=== PATIENT | male | born 1955 | race Caucasian/White ===

== ENCOUNTER → 2019-02-14 | Outpatient (CLI) | payer MEDICARE ==
[2019-02-14 14:38] VITALS: BP 140/92; PULSE 63; TEMP 97.9; BMI 38.9
--- NOTE | 2019-02-14 16:14 | FL ---
EXAMINATION TYPE: FL barium swallow DATE OF EXAM: 02/14/2019 LAP BANDING LIMITED ESOPHAGRAM: CLINICAL HISTORY: History of lap band placed 16 years ago with epigastric pain reflux-like symptoms for 4 months. TECHNIQUE: Limited esophagram is performed utilizing 2-3 oz of barium. A total of 42 seconds of fluo roscopic time was utilized during procedure. 51 spot images are saved for ordering surgeon. COMPARISON: None. FINDINGS: Pre-procedure clerk guide image shows lap band high in position with "O" sign and increased p hi angle. No prior study is available for comparison to assess change. The patient then drank oral co ntrast. There is satisfactory flow of contrast along the course of the esophagus. There is mild amelia y in flow of contrast along the course of the lap band, there is no evidence of contrast extravasatio n to suggest leak. There is small caliber channel. Majority of contrast remains about the lap band i nstead of passing to small caliber channel there is reflux into distal one half of esophagus. Patient remains asymptomatic during study. IMPRESSION: Suspect lap band slippage. Small caliber channel at LAD band despite empty fill causing m ild to borderline moderate obstruction.
--- NOTE | 2019-02-14 16:46 | P.HPBAR ---
Bariatric H&P - History & Physicial H&P Date: 02/14/19 History & Physicial: Visit/CC: lap band follow up Patient initial contact: Initial weight: 124.851 kg Initial weight in pounds: 275.25 Height: 5 ft 11 in Initial BMI: 38.4 Last weight: Current weight: 126.552 kg Current weight in pounds: 279.00 Current BMI: 38.9 [place] body weight (based on NIH guidelines): 78.018 kg Excess body weight loss: The patient is a 63 year-old M who presents for Bariatric Assessment. Patient has complaints of a night cough which is new. He denies any dysphagia or GERD. Past Medical History Past Medical History: Asthma, Hyperlipidemia, Hypertension Additional Past Medical History / Comment(s): , hx colon polyps, wound waist line History of Any Multi-Drug Resistant Organisms: None Reported Past Surgical History: Appendectomy, Bariatric Surgery, Joint Replacement Additional Past Surgical History / Comment(s): lt and rt shoulder replacement, lt knee replacement, skin reduction surgeries Past Anesthesia/Blood Transfusion Reactions: No Reported Reaction Past Psychological History: No Psychological Hx Reported Smoking Status: Never smoker Past Alcohol Use History: Occasional Past Drug Use History: None Reported - Past Family History Father Additional Family Medical History / Comment(s): experienced rectal bleeding and during a seizure episode Mother Family Medical History: No Reported History Surgical - Exam Vital Signs Temp Pulse BP 97.9 F 63 140/92 02/14/19 14:35 02/14/19 14:35 02/14/19 14:35 - General well developed, well nourished, no distress - Abdomen Abdomen: soft, non tender Bariatric Assessment & Plan Plan: Patient LAP-BAND was empty. 0.5 mL was removed from his band. He had an esophagram performed which showed some restriction across the band site is unclear if he has any definite movement of his LAP-BAND device suggestive of prolapse. Patient will follow-up in 2 weeks. He'll have a repeat esophagram performed at that time. Bariatric Checklist Checklist: Plan: Checklist: EGD: 1. Hiatal hernia: 2. H. Pylori: HgbA1c: Vitamin D: Smoking: Never smoker Primary care physician referral: Psychiatry clearance: Cardiology clearance: Sleep study: Diet journal: VTE risk score: VTE risk level: Rehab needs at discharge:
== END | disposition home or self-care (01) ==
LOC: BARWHC3 13:30
PROVIDERS: ATTEND Surgery
DX: Z46.51 Encounter for fitting and adjustment of gastric lap band (principal); J45.909 Unspecified asthma, uncomplicated; E78.5 Hyperlipidemia, unspecified; I10 Essential (primary) hypertension; Z98.84 Bariatric surgery status
CPT/HCPCS: 74220; G0463; 99212

== ENCOUNTER → 2019-02-28 | Outpatient (CLI) | payer MEDICARE ==
[2019-02-28 15:11] VITALS: BP 144/61; PULSE 66; TEMP 98.3; BMI 39.7
--- NOTE | 2019-02-28 15:28 | FL ---
EXAMINATION TYPE: FL barium swallow DATE OF EXAM: 02/28/2019 COMPARISON: 02/14/2019 HISTORY: Reflux TECHNIQUE: A single contrast esophagram is performed through the lap band with barium. FINDINGS: The takeoff of the full report appears superior. However, the lap band orientation appears normal on order tracer images. There appears to be narrowing through the lap band region. There is mild to moderate hesitancy of con trast passing through the lap band. No obstruction is evident. Tertiary contractions were evident. No prolapse of the stomach through the lap band is evident. There is some residual within the distal esophagus despite several swallowing attempts. The patient was placed horizontally on the table. Reflux was elicited during the examination to the l evel the clavicles. IMPRESSIONS: 1. Gastroesophageal reflux to the LAP-BAND was elicited to the level of clavicles. 2. Mild to moderate hesitancy passing antegrade through the lap band into the stomach
--- NOTE | 2019-03-14 14:24 | P.HPBAR ---
Bariatric H&P - History & Physicial H&P Date: 02/28/19 History & Physicial: Visit/CC: lap band followup Patient initial contact: Initial weight: 124.851 kg Initial weight in pounds: 275.25 Height: 5 ft 11 in Initial BMI: 38.4 Last weight: Current weight: 129.274 kg Current weight in pounds: 285.00 Current BMI: 39.7 [place] body weight (based on NIH guidelines): 78.018 kg Excess body weight loss: The patient is a 63 year-old M who presents for Bariatric Assessment. Patient presents today for lab band follow up. His band has been empty. He denies a significant dysphagia. Past Medical History Past Medical History: Asthma, Hyperlipidemia, Hypertension Additional Past Medical History / Comment(s): , hx colon polyps, wound waist line History of Any Multi-Drug Resistant Organisms: None Reported Past Surgical History: Appendectomy, Bariatric Surgery, Joint Replacement Additional Past Surgical History / Comment(s): lt and rt shoulder replacement, lt knee replacement, skin reduction surgeries Past Anesthesia/Blood Transfusion Reactions: No Reported Reaction Past Psychological History: No Psychological Hx Reported Smoking Status: Never smoker Past Alcohol Use History: Occasional Past Drug Use History: None Reported - Past Family History Father Additional Family Medical History / Comment(s): experienced rectal bleeding and during a seizure episode Mother Family Medical History: No Reported History Surgical - Exam Vital Signs Temp Pulse BP 98.3 F 66 144/61 02/28/19 15:07 02/28/19 15:07 02/28/19 15:07 - General well developed, well nourished - Abdomen Abdomen: soft, non tender Bariatric Assessment & Plan Plan: The patient is doing well. He denies any dysphagia. I discussed the patient that he may have a evidence of a small prolapse. This is difficult to tell on his x-ray. Since patient is asymptomatic he'll be observed. He'll follow-up in one month. Bariatric Checklist Checklist: Plan: Checklist: EGD: 1. Hiatal hernia: 2. H. Pylori: HgbA1c: Vitamin D: Smoking: Never smoker Primary care physician referral: Psychiatry clearance: Cardiology clearance: Sleep study: Diet journal: VTE risk score: VTE risk level: Rehab needs at discharge:
== END | disposition home or self-care (01) ==
LOC: BARWHC3 12:47
PROVIDERS: ATTEND Surgery
DX: Z09 Encounter for follow-up examination after completed treatment for conditions other than malignant neoplasm (principal); K21.9 Gastro-esophageal reflux disease without esophagitis; Z98.84 Bariatric surgery status; Z90.89 Acquired absence of other organs; Z98.890 Other specified postprocedural states
CPT/HCPCS: 74220; G0463; 99211

== ENCOUNTER → 2019-03-21 | Outpatient (CLI) | payer MEDICARE ==
[2019-03-21 13:42] VITALS: BP 142/84; PULSE 84; TEMP 98.2; BMI 40.3
--- NOTE | 2019-03-28 14:34 | P.HPBAR ---
Bariatric H&P - History & Physicial H&P Date: 03/21/19 History & Physicial: Visit/CC: lap band follow up Patient initial contact: Initial weight: 124.851 kg Initial weight in pounds: 275.25 Height: 5 ft 11 in Initial BMI: 38.4 Last weight: Current weight: 131.088 kg Current weight in pounds: 289.00 Current BMI: 40.3 [place] body weight (based on NIH guidelines): 78.018 kg Excess body weight loss: The patient is a 63 year-old M who presents for Bariatric Assessment. Patient presents for lap band follow up. He has had trouble with GERD and dysphagia. His LAP-BAND is empty. He is considering conversion to the sleeve gastrectomy. Past Medical History Past Medical History: Asthma, Hyperlipidemia, Hypertension Additional Past Medical History / Comment(s): , hx colon polyps, wound waist line History of Any Multi-Drug Resistant Organisms: None Reported Past Surgical History: Appendectomy, Bariatric Surgery, Joint Replacement Additional Past Surgical History / Comment(s): lt and rt shoulder replacement, lt knee replacement, skin reduction surgeries Past Anesthesia/Blood Transfusion Reactions: No Reported Reaction Past Psychological History: No Psychological Hx Reported Smoking Status: Never smoker Past Alcohol Use History: Occasional Past Drug Use History: None Reported - Past Family History Father Additional Family Medical History / Comment(s): experienced rectal bleeding and during a seizure episode Mother Family Medical History: No Reported History Surgical - Exam Vital Signs Temp Pulse BP 98.2 F 84 142/84 03/21/19 13:38 03/21/19 13:38 03/21/19 13:38 - General well developed, well nourished, no distress - Eyes PERRL - ENT normal pinna - Neck no masses - Respiratory normal expansion - Cardiovascular Rhythm: regular - Abdomen Abdomen: soft, non tender Bariatric Assessment & Plan Plan: GERD Dysphagia Patient LAP-BAND was emptied and he is still experiencing some mild GERD and dysphagia. The patient is considering conversion to sleeve gastrectomy. We will over the risks and benefits of procedure. He'll follow-up in one month. Bariatric Checklist Checklist: Plan: Checklist: EGD: 1. Hiatal hernia: 2. H. Pylori: HgbA1c: Vitamin D: Smoking: Never smoker Primary care physician referral: Psychiatry clearance: Cardiology clearance: Sleep study: Diet journal: VTE risk score: VTE risk level: Rehab needs at discharge:
== END | disposition home or self-care (01) ==
LOC: BARWHC3 13:05
PROVIDERS: ATTEND Surgery
DX: Z46.51 Encounter for fitting and adjustment of gastric lap band (principal); K21.9 Gastro-esophageal reflux disease without esophagitis; R13.10 Dysphagia, unspecified
CPT/HCPCS: 99211

== ENCOUNTER 2019-04-11 07:43 | Day surgery (SDC) | payer MEDICARE ==
[2019-04-06 15:38] VITALS: BMI 40.4
[~2019-04-11 07:43] MED LIST: LACTATED RINGERS 1,000 ML IV SCH; LIDOCAINE 1% 20 ML VIAL (10MG/ML) FOR IV START INTRADERMA PRN
[2019-04-11 08:09] VITALS: RESP 16; TEMP 97.1
[2019-04-11] MEDS ORDERED: PROPOFOL 10 MG/ML 20 ML VIAL IV ONE (08:30)
--- NOTE | 2019-04-11 08:37 | P.GSHP ---
History of Present Illness H&P Date: 04/11/19 Chief Complaint: GERD This is a 63-year-old male presents today for EGD. Patient's previous history of LAP-BAND procedure. He's had significant GERD. Past Medical History Past Medical History: Asthma, GERD/Reflux, Hyperlipidemia, Hypertension, Osteoarthritis (OA) Additional Past Medical History / Comment(s): Hx colon polyps, hx. of wound waist line, R sciatic pain @ times. History of Any Multi-Drug Resistant Organisms: None Reported Past Surgical History: Appendectomy, Bariatric Surgery, Joint Replacement, Tonsillectomy Additional Past Surgical History / Comment(s): lt and rt shoulder replacement, lt knee replacement, skin reduction surgeries, lap band surgery. Past Anesthesia/Blood Transfusion Reactions: No Reported Reaction Additional Past Anesthesia/Blood Transfusion Reaction / Comment(s): Throat closed up after one of his surgeries. Does not have any problems since he has lost weight. Smoking Status: Never smoker - Past Family History Father Additional Family Medical History / Comment(s): experienced rectal bleeding and during a seizure episode Mother Family Medical History: No Reported History Medications and Allergies Home Medications Medication Instructions Recorded Confirmed Type Aspirin [Adult Low Dose Aspirin EC] 81 mg PO DAILY 06/26/16 04/11/19 History Lisinopril [Prinivil] 10 mg PO HS 06/26/16 04/11/19 History Simvastatin [Zocor] 20 mg PO HS 06/26/16 04/11/19 History Latanoprost/Pf [Latanoprost 0.005% 1 drop BOTH EYES HS 04/06/19 04/11/19 History Eye Drop] Allergies Allergy/AdvReac Type Severity Reaction Status Date / Time meperidine HCl [From Demerol] Allergy Rash/Hives Verified 04/11/19 08:05 adhesive tape AdvReac Rash/Hives Verified 04/11/19 08:05 Surgical - Exam Vital Signs Temp Pulse Resp BP Pulse Ox 97.1 F L 62 16 152/77 97 04/11/19 08:06 04/11/19 08:06 04/11/19 08:06 04/11/19 08:06 04/11/19 08:06 - General well developed, well nourished, no distress - Eyes PERRL - ENT normal pinna - Neck no masses - Respiratory normal expansion - Cardiovascular Rhythm: regular - Abdomen Abdomen: soft, non tender Assessment and Plan Assessment: GERD. We'll perform EGD.
--- NOTE | 2019-04-11 08:49 | P.OP ---
Date of Procedure: 04/11/19 Preoperative Diagnosis: GERD Postoperative Diagnosis: Peptic ulcer disease with antral ulceration Procedure(s) Performed: EGD Anesthesia: MAC Surgeon: Flavio Collier Pathology: other (Antral ulcer) Condition: stable Disposition: PACU Description of Procedure: The patient's placed on the endoscopy table in the lateral position. He received IV sedation. The gastroscope placed oropharynx. The scope was placed in the esophagus and into the stomach. Scope was then placed through the pylorus. The first and second portion of the duodenum appeared normal. Scope was then brought back the antrum and there were 2 ulcers seen in the antrum. There is known to any active bleeding. The antral ulcer was biopsied. The remainder the stomach appeared normal. The scope was unretroflexed patient appears placed LAP-BAND device this was without evidence of inflammation or erosion. The proximal gastric stomach appeared slightly dilated. The GE junction was at 47 is. The distal esophagus normal. The proximal esophagus was normal. Scope was withdrawn for patient.
[2019-04-11] MEDS ORDERED: IV FLUID CONTINUATION 650 ML IV ONE (08:56)
[2019-04-11 09:12] VITALS: BP 128/85; PULSE 56
== END 2019-04-11 09:39 | disposition home or self-care (01) ==
LOC: ORWHC2ENDO 07:43
PROVIDERS: ATTEND Surgery
DX: K25.9 Gastric ulcer, unspecified as acute or chronic, without hemorrhage or perforation (principal); K29.50 Unspecified chronic gastritis without bleeding; K21.9 Gastro-esophageal reflux disease without esophagitis; J45.909 Unspecified asthma, uncomplicated; E78.5 Hyperlipidemia, unspecified; I10 Essential (primary) hypertension; M19.90 Unspecified osteoarthritis, unspecified site; Z86.010 Personal history of colon polyps; Z98.84 Bariatric surgery status; Z96.611 Presence of right artificial shoulder joint; Z96.652 Presence of left artificial knee joint; Z79.82 Long term (current) use of aspirin; Z79.899 Other long term (current) drug therapy; Z88.5 Allergy status to narcotic agent; Z91.09 Other allergy status, other than to drugs and biological substances
CPT/HCPCS: 88305; 43239; J2704

== ENCOUNTER → 2019-05-02 | Outpatient (CLI) | payer MEDICARE ==
--- NOTE | 2019-06-06 14:34 | P.HPBAR ---
Bariatric H&P - History & Physicial H&P Date: 05/02/19 History & Physicial: Visit/CC: Patient initial contact: Initial weight: 124.851 kg Initial weight in pounds: Height: Initial BMI: Last weight: Current weight: Current weight in pounds: Current BMI: [place] body weight (based on NIH guidelines): Excess body weight loss: The patient is a 63 year-old M who presents for Bariatric Assessment. Patient presents today he has had issues with peptic ulcer disease. Patient will be covering to sleeve gastrectomy. He is a chronic dysphagia with his LAP-BAND. Past Medical History Past Medical History: Asthma, CVA/TIA, GERD/Reflux, Hyperlipidemia, Hypertension, Osteoarthritis (OA) Additional Past Medical History / Comment(s): Hx colon polyps, hx. of wound waist line, R sciatic pain @ times. History of Any Multi-Drug Resistant Organisms: None Reported Past Surgical History: Appendectomy, Bariatric Surgery, Joint Replacement, Tonsillectomy Additional Past Surgical History / Comment(s): lt and rt shoulder replacement, lt knee replacement, skin reduction surgeries, lap band surgery. Past Anesthesia/Blood Transfusion Reactions: No Reported Reaction Additional Past Anesthesia/Blood Transfusion Reaction / Comm: Throat closed up after one of his surgeries. Does not have any problems since he has lost weight. Past Psychological History: No Psychological Hx Reported Smoking Status: Never smoker Past Alcohol Use History: Occasional Past Drug Use History: None Reported - Past Family History Father Additional Family Medical History / Comment(s): experienced rectal bleeding and during a seizure episode Mother Family Medical History: No Reported History Surgical - Exam - General well developed, well nourished, no distress - Eyes PERRL - ENT normal pinna - Abdomen Abdomen: soft, non tender Bariatric Assessment & Plan Plan: Chronic dysphagia related to LAP-BAND. Patient will undergo conversion to sl eeve gastrectomy with removal of LAP-BAND. Patient is well aware the risks of surgery including conversion to the open procedure and injury to the stomach liver spleen. Bariatric Checklist Checklist: Plan: Checklist: EGD: 1. Hiatal hernia: 2. H. Pylori: HgbA1c: Vitamin D: Smoking: Never smoker Primary care physician referral: Dr. J Luis Cunningham ([place]) Psychiatry clearance: Cardiology clearance: Sleep study: Diet journal: VTE risk score: VTE risk level: Rehab needs at discharge:
== END | disposition home or self-care (01) ==
DX: Z53.9 Procedure and treatment not carried out, unspecified reason (principal)

== ENCOUNTER → 2019-05-02 | Outpatient (CLI) | payer MEDICARE ==
[2019-05-02 09:44] VITALS: BMI 40.5
[2019-05-02 13:16] VITALS: BP 142/80; PULSE 60; TEMP 98.3
[2019-05-02 14:01] LABS: Basophils # (A) 0.1 k/uL (0-0.2); Basophils % (A) 1 %; Eosinophils # (A) 0.6 k/uL (0-0.7); Eosinophils % (A) 8 %; HCT 44.7 % (39.0-53.0); HGB 13.8 gm/dL (13.0-17.5); Lymphocytes # (A) 2.4 k/uL (1.0-4.8); Lymphocytes % (A) 29 %; MCH 25.7 pg (25.0-35.0); MCV 83.1 fL (80.0-100.0); Mean Platelet Volume 7.1; Monocytes # (A) 0.4 k/uL (0-1.0); Monocytes % (A) 5 %; Neutrophils # (A) 4.6 k/uL (1.3-7.7); Neutrophils % (A) 56 %; Platelet Count 279 k/uL (150-450); RBC 5.38 m/uL (4.30-5.90); RDW 14.6 % (11.5-15.5); WBC 8.2 k/uL (3.8-10.6)
[2019-05-02 19:28] LABS: African American GFR (CKD) 74.1 (60.0-200.0); Albumin 4.6 g/dL (3.80-4.90); Anion Gap 11.2 mmol/L (4.00-12.00); Calcium 9.5 mg/dL (8.7-10.3); Carbon Dioxide 21.8 mmol/L (21.6-31.8); Globulin 2.3 g/dL (1.6-3.3); Potassium 4.3 mmol/L (3.5-5.5); Total Bilirubin 0.3 mg/dL (0.3-1.2); Total Protein 6.9 g/dL (6.2-8.2)
== END | disposition home or self-care (01) ==
LOC: BARWHC3 08:45
PROVIDERS: ATTEND Surgery
DX: E66.01 Morbid (severe) obesity due to excess calories (principal); Z68.41 Body mass index [BMI] 40.0-44.9, adult
CPT/HCPCS: 80053; 85025; 97804; G0463; 99211

== ENCOUNTER 2019-05-04 07:54 | Day surgery (SDC) | payer MEDICARE ==
[2019-05-03 08:12] VITALS: BMI 40.4
[2019-05-04 08:15] VITALS: TEMP 97.3
[2019-05-04] MEDS ORDERED: LIDOCAINE 1% INJ 10MG/ML (20 ML MDV) ONE (09:26)
[2019-05-04] MEDS ORDERED: PROPOFOL 10 MG/ML 20 ML VIAL IV ONE (09:26)
--- NOTE | 2019-05-04 09:39 | P.GSHP ---
History of Present Illness H&P Date: 05/04/19 Chief Complaint: History of gastric ulcer This is a 63-year-old male who's had a previous gastric ulcer. Patient presents today for EGD. Past Medical History Past Medical History: Asthma, CVA/TIA, GERD/Reflux, Hyperlipidemia, Hyperten gera, Osteoarthritis (OA) Additional Past Medical History / Comment(s): Hx colon polyps, hx. of wound waist line, R sciatic pain @ times. small ulcer History of Any Multi-Drug Resistant Organisms: None Reported Past Surgical History: Appendectomy, Bariatric Surgery, Joint Replacement, Tonsillectomy Additional Past Surgical History / Comment(s): lt and rt shoulder replacement, lt knee replacement, skin reduction surgeries, lap band surgery. EGD 04/11/19 Past Anesthesia/Blood Transfusion Reactions: No Reported Reaction Additional Past Anesthesia/Blood Transfusion Reaction / Comment(s): Throat closed up after one of his surgeries many years ago. has had 8 surgeries since with no problems. Smoking Status: Never smoker - Past Family History Father Additional Family Medical History / Comment(s): experienced rectal bleeding and during a seizure episode Mother Family Medical History: No Reported History Medications and Allergies Home Medications Medication Instructions Recorded Confirmed Type Lisinopril [Prinivil] 10 mg PO HS 06/26/16 05/04/19 History Simvastatin [Zocor] 20 mg PO HS 06/26/16 05/04/19 History Latanoprost/Pf [Latanoprost 0.005% 1 drop BOTH EYES HS 04/06/19 05/04/19 History Eye Drop] C,E,Zinc,Copper 11/Bzwjb3y/Lut 1 each PO QAM 05/02/19 05/04/19 History [Ocuvite Adult 50 Plus Softgel] Omeprazole 40 mg PO QAM 05/02/19 05/04/19 History Allergies Allergy/AdvReac Type Severity Reaction Status Date / Time meperidine HCl [From Demerol] Allergy Rash/Hives Verified 05/04/19 08:07 adhesive tape AdvReac Rash/Hives Verified 05/04/19 08:07 Surgical - Exam Vital Signs Temp Pulse Resp BP Pulse Ox 97.3 F L 58 L 18 144/84 96 05/04/19 08:05 05/04/19 08:05 05/04/19 08:05 05/04/19 08:05 05/04/19 08:05 - General well developed, well nourished, no distress - Eyes PERRL - ENT normal pinna - Neck no masses - Respiratory normal expansion - Cardiovascular Rhythm: regular - Abdomen Abdomen: soft, non tender Assessment and Plan Assessment: History of gastric ulcer. We'll perform EGD.
--- NOTE | 2019-05-04 09:47 | P.OP ---
Date of Procedure: 05/04/19 Preoperative Diagnosis: Peptic ulcer disease Postoperative Diagnosis: Antral gastritis Procedure(s) Performed: EGD Anesthesia: MAC Surgeon: Flavio Collier Pathology: other (antrum) Description of Procedure: The patient's placed on the endoscopy table in the lateral position. He received IV sedation. The gastroscope placed oropharynx passed in the esop hagus. Scope was placed and stomach. Scope was placed through the pylorus. The first and second portion of the duodenum appeared normal. Scope was brought back the antrum and there is some minimal antral gastritis. The previous seen peptic ulcer had healed. The antrum was biopsied. The scope was unretroflexed and remainder the stomach appeared normal. The patient had a LAP-BAND device without evidence of insufflation erosion. The scope was then brought back the GE junction was at 40 cm. The distal esophagus appeared normal. The proximal esophagus appeared normal. Scope was brought patient.
[2019-05-04 10:09] VITALS: BP 130/87; PULSE 63; RESP 17
== END 2019-05-04 10:35 | disposition home or self-care (01) ==
LOC: ORWHC2ENDO 07:54
PROVIDERS: ATTEND Surgery
DX: K29.50 Unspecified chronic gastritis without bleeding (principal); K31.9 Disease of stomach and duodenum, unspecified; Z87.11 Personal history of peptic ulcer disease; Z98.84 Bariatric surgery status; J45.909 Unspecified asthma, uncomplicated; K21.9 Gastro-esophageal reflux disease without esophagitis; E78.5 Hyperlipidemia, unspecified; I10 Essential (primary) hypertension; M19.90 Unspecified osteoarthritis, unspecified site; Z79.899 Other long term (current) drug therapy; Z79.82 Long term (current) use of aspirin; Z88.5 Allergy status to narcotic agent; Z91.048 Other nonmedicinal substance allergy status; Z86.73 Personal history of transient ischemic attack (TIA), and cerebral infarction without residual deficits; Z86.010 Personal history of colon polyps; Z96.612 Presence of left artificial shoulder joint; Z96.611 Presence of right artificial shoulder joint; Z96.652 Presence of left artificial knee joint; Z98.890 Other specified postprocedural states; Z90.89 Acquired absence of other organs; Z90.49 Acquired absence of other specified parts of digestive tract; Z82.0 Family history of epilepsy and other diseases of the nervous system
CPT/HCPCS: 88305; 43239; J2001; J2704

== ENCOUNTER 2019-05-19 07:30 | Observation (INO) | payer MEDICARE ==
[2019-05-12 08:21] VITALS: BMI 40.4
[~2019-05-19 07:30] MED LIST changes: +DEXAMETHASONE SOD PHOSPHATE 10 MG/ML 1 ML VIAL IV ONE; +ENOXAPARIN 40 MG/0.4 ML SYRINGE SQ ONE; +HYDROmorphone 0.5 MG/0.5 ML SYRINGE IVP PRN; +MIDAZOLAM 2 MG/2 ML VIAL IV PRN; +ONDANSETRON 4 MG/2 ML VIAL IVP ONE; +SCOPOLAMINE 1.5MG/72HR PATCH TRANSDERM ONE; +ceFAZolin 3 GM in SODIUM CHLORIDE 0.9% 100 ML IVPB ONE
--- NOTE | 2019-05-19 09:24 | P.GSHP ---
History of Present Illness H&P Date: 05/19/19 Chief Complaint: Dysphagia This is a 63-year-old male who presents today for removal of LAP-BAND and conversion sleeve gastrectomy. Patient's had issues with chronic dysphagia related to his LAP-BAND. Patient presents today for removal LAP-BAND. He is also a risk of surgery including conversion to the open procedure and injury to the stomach liver spleen he is also aware the risk of gastric staple line disruption bleeding scarring. Past Medical History Past Medical History: Asthma, GERD/Reflux, Hyperlipidemia, Hypertension, Osteoarthritis (OA) Additional Past Medical History / Comment(s): Hx colon polyps, hx. of wound waist line, R sciatic pain @ times. hx stomach ulcers History of Any Multi-Drug Resistant Organisms: None Reported Past Surgical History: Appendectomy, Bariatric Surgery, Joint Replacement, Tonsillectomy Additional Past Surgical History / Comment(s): lt and rt shoulder replacement, lt knee replacement, skin reduction surgeries, lap band surgery. rk surgery eyes Past Anesthesia/Blood Transfusion Reactions: No Reported Reaction Additional Past Anesthesia/Blood Transfusion Reaction / Comment(s): Throat closed up after one of his surgeries. Does not have any problems since he has lost weight. Smoking Status: Never smoker - Past Family History Father Family Medical History: Seizure Disorder Additional Family Medical History / Comment(s): experienced rectal bleeding and during a seizure episode Mother Family Medical History: No Reported History Medications and Allergies Home Medications Medication Instructions Recorded Confirmed Type Lisinopril [Prinivil] 10 mg PO HS 06/26/16 05/12/19 History Simvastatin [Zocor] 20 mg PO HS 06/26/16 05/12/19 History Latanoprost/Pf [Latanoprost 0.005% 1 drop BOTH EYES HS 04/06/19 05/12/19 History Eye Drop] C,E,Zinc,Copper 11/Tzftb2o/Lut 1 each PO QAM 05/02/19 05/12/19 History [Ocuvite Adult 50 Plus Softgel] Omeprazole 40 mg PO QAM 05/02/19 05/12/19 History Allergies Allergy/AdvReac Type Severity Reaction Status Date / Time meperidine HCl [From Demerol] Allergy Rash/Hives Verified 05/12/19 08:11 adhesive tape AdvReac Rash/Hives Verified 08/01/19 08:11 Surgical - Exam Vital Signs Temp Pulse Resp BP Pulse Ox 97.7 F 64 16 140/83 94 L 05/19/19 09:21 05/19/19 09:21 05/19/19 09:21 05/19/19 09:21 05/19/19 09:21 BMI 40 - General well developed - Eyes PERRL - ENT normal pinna - Neck no masses - Respiratory normal expansion - Cardiovascular Rhythm: regular - Abdomen Abdomen: soft, non tender - Rectum Rectum: normal sphincter tone Assessment and Plan Assessment: Morbid obesity Dysphagia We'll perform removal of LAP-BAND Sleeve gastrectomy
[2019-05-19] MEDS ORDERED: ePHEDrine SULFATE/0.9% NACL/PF 50 MG/5 ML SYRINGE IV ONE (10:01)
[2019-05-19] MEDS ORDERED: NEOSTIGMINE 1 MG/ML 10 ML VIAL ONE (10:01)
[2019-05-19] MEDS ORDERED: GLYCOPYRROLATE 0.2 MG/ML 2 ML VIAL ONE (10:01)
[2019-05-19] MEDS ORDERED: PROPOFOL 10 MG/ML 20 ML VIAL IV ONE (10:01)
[2019-05-19] MEDS ORDERED: fentaNYL (PF) 50 MCG/ML 2 ML AMP ONE (10:01)
[2019-05-19] MEDS ORDERED: PHENYLEPHRINE-0.9% NACL SYG 1 MG/10 ML SYRINGE ONE (10:01)
[2019-05-19] MEDS ORDERED: LIDOCAINE 1% INJ 10MG/ML (20 ML MDV) ONE (10:01)
[2019-05-19] MEDS ORDERED: MIDAZOLAM 2 MG/2 ML VIAL ONE (10:01)
[2019-05-19] MEDS ORDERED: ROCURONIUM BROMIDE 10 MG/ML 10 ML VIAL IV ONE (10:01)
[2019-05-19] MEDS ORDERED: BUPIVACAIN-EPI 0.25%-1:200,000 30 ML VIAL SQ ONE (10:46)
[2019-05-19] MEDS ORDERED: LACTATED RINGERS 1,000 ML IV ONE ×2 (10:54→11:47)
[2019-05-19] MEDS ORDERED: HYDROmorphone 0.5 MG/0.5 ML SYRINGE IVP PRN (10:54)
[2019-05-19] MEDS ORDERED: ONDANSETRON 4 MG/2 ML VIAL IVP PRN (10:54)
[2019-05-19] MEDS ORDERED: HYDROcodone/APAP 5-325MG 1 EACH TAB PO PRN (10:54)
[2019-05-19] MEDS ORDERED: NALOXONE 0.4 MG/ML 1 ML VIAL IV PRN (10:54)
--- NOTE | 2019-05-19 10:54 | P.OP ---
Date of Procedure: 05/19/19 Preoperative Diagnosis: Dysphagia Morbid obesity Postoperative Diagnosis: Dysphagia Morbid obesity Hypotension Procedure(s) Performed: Diagnostic laparoscopy Anesthesia: SHANNAN Surgeon: Flavio Collier Estimated Blood Loss (ml): 3 Pathology: none sent Condition: stable Description of Procedure: Patient's placed on the operative table in the supine position. He received general anesthesia. His abdomen was prepped and draped usual fashion. A skin incision was made in the left upper quadrant and then using the 5 mm optical trocar under direct visualization the perineal cavity was entered. The abdomen was insufflated. Next a 15 mm trochars placed at the suprapubic umbilical position and under direct visualization. And then another skin incision was made at the port site. The laparoscope placed back the pleural cavity and the LAP-BAND device was visualized. At this point the patient had hypotension his abdomen was desufflated. He was managed medically by anesthesia. His blood pressure does not improve. Patient sustained blood pressures in the 60s systolic range. At this point the case was terminated there is known to any bleeding. Patient had trochars removed. The skin was closed interrupted 3-0 Monocryl suture. Dermabond was applied. He was sent to recovery room for cardiology consultation.
[2019-05-19 12:55] LABS: Cholesterol 160 mg/dL (<200); HDL Cholesterol 38 mg/dL (40-60); LDL Cholesterol,Calculated 100 mg/dL (0-99); Triglycerides 112 mg/dL (<150)
--- NOTE | 2019-05-19 19:08 | P.CRDCN ---
History of Present Illness History of present illness: This is Dr. Denise dictating a consult on this patient The patient was interviewed and examined by me IMPRESSION / ASSESSMENT: Episode of persistent hypotension during anesthesia during surgery for removal of the lap band and conversion sleeve gastrectomy. Surgery was prematurely aborted I saw the patient he was completely asymptomatic Past history of mild hypertension, on low-dose lisinopril 10 mg by mouth daily History of episodes of low blood pressure on this drug Dyslipidemia History of bariatric surgery in the past PLAN: Hold lisinopril today Restart lisinopril 5 mg by mouth daily If he is stable he may go home tomorrow after ambulating in the hallways and ensuring that his blood pressure is normal Follow-up with his primary care physician Home blood pressure monitoring 2-D echo and Doppler study HPI Patient developed persistent hypotension during removal of the lap band. The surgery was not completed, prematurely terminated it when I saw the patient he was completely asymptomatic. He denied any chest discomfort dizziness lightheadedness blood pressure was normal heart rates are normal he looks comfortable no respiratory distress No recent history of orthopnea PND shortness of breath with exertion chest discomfort dizziness lightheadedness ROS: No fever chills or rigors, no cough, phlegm or expectoration, no nausea, vomiting or diarrhea, no hematuria, dysuria, no musculoskeletal complaints, no strokes or seizures, no skin lesions. EXAMINATION: Blood pressure 126/57 mmHg pulse rate in the 60s afebrile 98.7F Breath sounds are clear no rhonchi no crackles Heart sounds S1-S2 normal no murmurs or gallops no rub Breath sounds are clear no rhonchi no crackles Abdomen soft Extremities are warm no edema REVIEW OF LABS, ECG & MEDICAL DATA Never smoker History of bariatric surgery in the past Hypertension and asthma LDL 100 HDL 38 also level XIV triglycerides 112 Troponin normal Twelve-lead ECG shows sinus rhythm normal ST segments normal cardiac intervals Past Medical History Past Medical History: Asthma, GERD/Reflux, Hyperlipidemia, Hypertension, Osteoarthritis (OA) Additional Past Medical History / Comment(s): Hx colon polyps, hx. of wound waist line, R sciatic pain @ times. hx stomach ulcers History of Any Multi-Drug Resistant Organisms: None Reported Past Surgical History: Appendectomy, Bariatric Surgery, Joint Replacement, Tonsillectomy Additional Past Surgical History / Comment(s): lt and rt shoulder replacement, lt knee replacement, skin reduction surgeries, lap band surgery. rk surgery eyes Past Anesthesia/Blood Transfusion Reactions: No Reported Reaction Additional Past Anesthesia/Blood Transfusion Reaction / Comment(s): Throat closed up after one of his surgeries. Does not have any problems since he has lost weight. Smoking Status: Never smoker - Past Family History Father Family Medical History: Seizure Disorder Additional Family Medical History / Comment(s): experienced rectal bleeding and during a seizure episode Mother Family Medical History: No Reported History Medications and Allergies Home Medications Medication Instructions Recorded Confirmed Type Lisinopril [Prinivil] 10 mg PO HS 06/26/16 05/19/19 History Simvastatin [Zocor] 20 mg PO HS 06/26/16 05/19/19 History Latanoprost/Pf [Latanoprost 0.005% 1 drop BOTH EYES HS 04/06/19 05/19/19 History Eye Drop] C,E,Zinc,Copper 11/Nukmw9z/Lut 1 cap PO QA 05/02/19 05/19/19 History [Ocuvite Adult 50 Plus Softgel] Omeprazole 40 mg PO QAM 05/02/19 05/19/19 History Allergies Allergy/AdvReac Type Severity Reaction Status Date / Time adhesive tape Allergy Rash/Hives Verified 05/19/19 13:57 meperidine HCl [From Demerol] Allergy Rash/Hives Verified 05/19/19 13:57 Physical Exam Vitals: Vital Signs Temp Pulse Resp BP BP Pulse Ox 05/19/19 15:52 65 17 99/59 93 L 05/19/19 13:47 98.7 F 78 17 102/57 94 L 05/19/19 12:43 66 16 126/57 97 05/19/19 12:13 85 16 123/56 96 05/19/19 12:00 81 16 124/63 97 05/19/19 11:42 70 18 120/62 95 05/19/19 11:38 72 16 117/59 96 05/19/19 11:30 72 16 124/65 95 05/19/19 11:24 79 16 116/63 96 05/19/19 11:16 80 16 120/62 94 L 05/19/19 10:58 96.8 F L 82 16 109/59 94 L 05/19/19 09:21 97.7 F 64 16 140/83 94 L Intake and Output 05/19/19 05/19/19 05/19/19 06:59 14:59 22:59 Intake Total 1425 360 Output Total 2 Balance 1423 360 Intake: IV 1300 Intake, IV Titration 125 Amount Lactated Ringers 1,000 ml 125 @ 125 mls/hr IV .Q8H ONE Rx#:[id number] Oral 360 Output: Estimated Blood Loss 2 Results Cardiac Enzymes 05/19/19 Range/Units 12:25 Troponin I <0.012 (0.000-0.034) ng/mL Lipids 05/19/19 Range/Units 12:25 Triglycerides 112 (<150) mg/dL Cholesterol 160 (<200) mg/dL HDL Cholesterol 38 L (40-60) mg/dL Current Medications Generic Name Dose Route Start Last Admin Trade Name Freq PRN Reason Stop Dose Admin Hydrocodone Bitart/Acetaminophen 2 each 05/19/19 10:54 [place] 5-325 PO Q6HR PRN Moderate to Severe Pain Enoxaparin Sodium 40 mg 05/20/19 09:00 Lovenox SQ DAILY VANI Hydromorphone HCl 0.5 mg 05/19/19 05:51 Dilaudid IVP 05/20/19 05:52 Q5M PRN Pain Control Hydromorphone HCl 0.5 mg 05/19/19 10:54 Dilaudid IVP Q3HR PRN Moderate to Severe Pain Latanoprost 1 drops 05/19/19 21:00 Xalatan 0.005% BOTH EYES HS VANI Lidocaine HCl 0.1 ml 05/19/19 05:51 05/19/19 09:47 .Xylocaine 1% Inj (10mg/Ml) For Iv Start INTRADERMA 0.1 ml PER PROTOCOL PRN Administration IV Start Midazolam HCl 2 mg 05/19/19 05:51 Versed IV 05/20/19 05:52 ONCE PRN Anxiety Naloxone HCl 0.2 mg 05/19/19 10:54 Narcan IV Q2M PRN Opioid Reversal Ondansetron HCl 4 mg 05/19/19 10:54 Zofran IVP Q8HR PRN Nausea And Vomiting Pantoprazole Sodium 40 mg 05/20/19 07:30 Protonix PO AC-BRKFST VANI Intake and Output 05/19/19 05/19/19 05/19/19 06:59 14:59 22:59 Intake Total 1425 360 Output Total 2 Balance 1423 360 Intake: IV 1300 Intake, IV Titration 125 Amount Lactated Ringers 1,000 ml 125 @ 125 mls/hr IV .Q8H ONE Rx#:[id number] Oral 360 Output: Estimated Blood Loss 2
[2019-05-19] MEDS ORDERED: LATANOPROST 0.005% OPHTH DROPS 2.5 ML BTL BOTH EYES SCH (21:00)
--- NOTE | 2019-05-19 23:03 | CONS ---
CONSULTATION REASON FOR CONSULTATION: Advice regarding hypertension and other medical issues requested by Dr. Collier. HISTORY OF PRESENT ILLNESS: This 63-year-old gentleman with a past medical history of multiple medical problems including asthma, GERD, hypertension, hyperlipidemia, DJD, bariatric surgery being followed by Dr. Wakefield in the outpatient was admitted for a gastric sleeve surgery after anesthesia and after making the abdominal punctures, prior to laparoscopy, the patient went into hypotension. The blood pressure was in the 60s systolic range and the procedure was interrupted and the patient admitted for further evaluation and treatment. EKG showed non-progression R-wave. Initial troponins negative. Cardiology evaluation in progress at this time. The patient also seen by Cardiology previously, the patient's own web assistant. There is no history of fever, rigors or chills. No history of headache, loss of consciousness, seizures at this time. PAST MEDICAL HISTORY: History of asthma, GERD, hypertension, history of DJD, history of bariatric surgery and appendectomy. MEDICATIONS: Prior to admission include home medications are: 1. Zocor 20 mg q.h.s. 2. Omeprazole 40 mg q.a.m. 3. Prinivil 10 mg q.h.s. 4. Latanoprost 1 drop both eyes q.h.s. 5. Ocuvite 1 capsule q.a.m. ALLERGIES: ADHESIVE TAPES AND DEMEROL. FAMILY HISTORY: History of seizure disorder. SOCIAL HISTORY: No history of smoking. Occasional alcohol intake. REVIEW OF SYSTEMS: ENT diminished vision. Diminished hearing. CARDIOVASCULAR: As mentioned earlier. RESPIRATORY: As mentioned earlier. GI as mentioned earlier. no dysuria. NERVOUS SYSTEM: No numbness or weakness. ALLERGY/IMMUNOLOGY: No asthma or hayfever. MUSCULOSKELETAL: As mentioned earlier. HEMATOLOGY/ONCOLOGY: No history of anemia. ENDOCRINE: No history of diabetes or hypothyroidism. CONSTITUTIONAL: As mentioned earlier. Dermatology: Negative. Rheumatology: Negative. Psychiatry: As mentioned earlier. PHYSICAL EXAMINATION: The patient is alert and oriented times three. Pulse 65, blood pressure 99/59, respiration 17, temperature 98.7, pulse ox 93% on room air. HEENT: Conjunctivae normal. Oral mucosa moist. NECK is no jugular venous distention. No carotid bruit. No lymph node enlargement. CARDIOVASCULAR: S1, S2 muffled. RESPIRATIONS: Breath sounds diminished in the bases. A few scattered rhonchi. No crackles. ABDOMEN: Soft. Some mild distention. Status post abdominal puncture for the surgery tender. Bowel sounds present. LEGS no edema. No swelling. NERVOUS SYSTEM: Higher functions as mentioned earlier. Moves all 4 limbs. No focal motor or sensory deficits. Lymphatics: No lymph nodes palpable in the neck, axillae or groin. SKIN: No ulcer, rash or bleeding. JOINTS: No active deforming arthropathy. LABS: AST is 38, LDL is 100. ASSESSMENT: 1. Perioperative hypotension for evaluation. 2. Morbid obesity, dysphagia for sleeve gastrectomy. 3. History of asthma. 4. Gastroesophageal reflux disease. 5. Hypertension. 6. Hyperlipidemia. 7. History of degenerative joint disease. 8. History of colonic polyps. 9. History of bariatric surgery. 10.FULL CODE. RECOMMENDATIONS AND DISCUSSION: In this 63-year-old gentleman who presented with multiple medical issues, at this time, I recommend to continue current medications, management and symptomatic treatment. I recommend baseline labs. Otherwise, I would also recommend EKG and 2D echo. Cardiology consultation. Set of troponins. We will follow the patient closely and further recommendations to follow. A copy of dictation being forwarded to Dr. Wakefield who is the primary physician. MMODL / IJN: [id number] /
[2019-05-20 06:58] LABS: Basophils % (A) 0 %; Eosinophils # (A) 0.1 k/uL (0-0.7); Eosinophils % (A) 1 %; HGB 13.1 gm/dL (13.0-17.5); Lymphocytes # (A) 1.5 k/uL (1.0-4.8); Lymphocytes % (A) 14 %; MCHC 32.7 g/dL (31.0-37.0); MCV 82.6 fL (80.0-100.0); Mean Platelet Volume 7.5; Monocytes # (A) 0.7 k/uL (0-1.0); Monocytes % (A) 6 %; Neutrophils # (A) 8.2 k/uL (1.3-7.7); Neutrophils % (A) 77 %; Platelet Count 244 k/uL (150-450); RBC 4.85 m/uL (4.30-5.90); RDW 14.5 % (11.5-15.5); WBC 10.6 k/uL (3.8-10.6)
[2019-05-20 07:12] LABS: Albumin 3.6 g/dL (3.5-5.0); Calcium 9.3 mg/dL (8.4-10.2); Potassium 4.7 mmol/L (3.5-5.1); Total Bilirubin 0.4 mg/dL (0.2-1.3); Total Protein 6.1 g/dL (6.3-8.2)
[2019-05-20] MEDS ORDERED: PANTOPRAZOLE 40 MG TABLET PO SCH (07:30)
[2019-05-20] MEDS ORDERED: ENOXAPARIN 40 MG/0.4 ML SYRINGE SQ SCH (09:00)
--- NOTE | 2019-05-20 09:26 | ECHOF ---
Referral Reason:LOW BLOOD PRESSURE MEASUREMENTS -------- HEIGHT: 162.6 cm WEIGHT: 131.5 kg BP: IVSd: 1.6 cm (0.6 - 1.1) LVIDd: 3.7 cm (3.9 - 5.3) LVPWd: 1.9 cm (0.6 - 1.1) IVSs: 1.9 cm LVIDs: 2.8 cm LVPWs: 1.7 cm LA Diam: 4.0 cm (2.7 - 3.8) Ao Diam: 2.9 cm (2.0 - 3.7) AV Cusp: 1.7 cm (1.5 - 2.6) LA Diam: 3.8 cm (2.7 - 3.8) MV EXCURSION: 17.180 mm (> 18.000) MV EF SLOPE: 44 mm/s (70 - 150) EPSS: 0.5 cm MV E Edson: 0.53 m/s MV DecT: 306 ms MV A Edson: 0.86 m/s MV E/A Ratio: 0.62 RAP: 5.00 mmHg RVSP: 14.45 mmHg FINDINGS -------- Sinus rhythm. This was a techncally difficult study with suboptimal views, , Lumason utilized for enhancement of im ages. The left ventricular size is normal. There is moderate concentric left ventricular hypertrophy. O verall left ventricular systolic function is low-normal with, an EF between 50 - 55 %. The right ventricle is normal in size. The left atrial size is normal. The right atrial size is normal. There is mild aortic valve sclerosis. There is no evidence of aortic regurgitation. Mild mitral annular calcification present. Mild mitral regurgitation is present. Mild tricuspid regurgitation present. There is no evidence of pulmonary hypertension. The right v entricular systolic pressure, as measured by Doppler, is 14.45mmHg. The pulmonic valve was not well visualized. The aortic root size is normal. There is no pericardial effusion. CONCLUSIONS -------- 1. This was a techncally difficult study with suboptimal views, , Lumason utilized for enhancement of images. 2. The left ventricular size is normal. 3. There is moderate concentric left ventricular hypertrophy. 4. Overall left ventricular systolic function is low-normal with, an EF between 50 - 55 %. 5. The right ventricle is normal in size. 6. The left atrial size is normal. 7. The right atrial size is normal. 8. There is mild aortic valve sclerosis. 9. Mild mitral annular calcification present. 10. Mild mitral regurgitation is present. 11. Mild tricuspid regurgitation present. 12. There is no evidence of pulmonary hypertension. 13. The right ventricular systolic pressure, as measured by Doppler, is 14.45mmHg. 14. The pulmonic valve was not well visualized. 15. The aortic root size is normal. 16. There is no pericardial effusion. TRANSPORTATION MAINTENANCE OPERATOR: Evy Warner RDCS
[2019-05-20 09:30] VITALS: RESP 20; TEMP 97.8
--- NOTE | 2019-05-20 11:10 | P.PN ---
Subjective Progress Note Date: 05/20/19 Principal diagnosis: Hypotension This is a pleasant 63-year-old gentleman who was admitted to the hospital yesterday to undergo removal of Laband. At the beginning of the procedure, the patient developed low blood pressure and because of that the procedure was aborted. He was receiving lisinopril at 10 mg by mouth daily and that was stopped. The echocardiogram revealed normal LV function. On follow-up with him today, 05/20/2019, he is asymptomatic. The pressure has been stable. He is off lisinopril. From a cardiovascular standpoint overview, he might be able to be discharged home. I would send him home without any lisinopril. Objective - Vital Signs Vital signs: Vital Signs Temp 97.8 F 05/20/19 08:00 Pulse 67 05/20/19 08:00 Resp 20 05/20/19 08:00 BP 128/71 05/20/19 08:00 Pulse Ox 97 05/20/19 08:00 Intake & Output 05/19/19 05/20/19 05/20/19 18:59 06:59 18:59 Intake Total 1785 240 Output Total 2 295 575 Balance 1783 -295 -335 Weight 130.2 kg Intake: IV 1300 Intake, IV Titration 125 Amount Lactated Ringers 1,000 ml 125 @ 125 mls/hr IV .Q8H ONE Rx#:[id number] Oral 360 240 Output: Urine 295 575 Estimated Blood Loss 2 Other: Voiding Method Toilet # Voids 1 - Constitutional General appearance: Present: no acute distress - Respiratory Respiratory: bilateral: CTA - Cardiovascular Rhythm: regular Heart sounds: normal: S1, S2 - Labs CBC & Chem 7: 05/20/19 05:57 05/20/19 05:57 Labs: Abnormal Lab Results - Last 24 Hours (Table) 05/19/19 05/20/19 05/20/19 Range/Units 12:25 05:57 05:57 Neutrophils # 8.2 H (1.3-7.7) k/uL ALT 14 L (21-72) U/L Total Protein 6.1 L (6.3-8.2) g/dL LDL Cholesterol, Calc 100 H (0-99) mg/dL HDL Cholesterol 38 L (40-60) mg/dL Assessment and Plan Assessment: Assessment #1 hypotension which was resolved Plan #1 the patient can be discharged home #2 I would discharge home without any lisinopril
--- NOTE | 2019-05-20 12:15 | P.DS ---
Providers Date of admission: 05/19/19 08:59 Expected date of discharge: 05/20/19 Attending physician: Flavio Collier Consults: 05/19/19 10:54 Consult Physician Routine Consulting Provider: Marion Salazar Consult Reason/Comments: (Management Do you want consulting provider notified?: Yes 05/19/19 11:04 Consult Physician Urgent Consulting Provider: Angus Denise Consult Reason/Comments: HYPOTENSION Do you want consulting provider notified?: Yes Primary care physician: Jorge Prior Hospital Course: 63-year-old male who was scheduled for removal of lap band and conversion to sleeve gastrectomy on 05/19/[address] Collier. The patient's abdomen was insufflated and he became hypotensive. Abdomen was desufflated. Patient continued to maintain pressures with systolics in the 60s. At this point, case was terminated. Patient was admitted to the cardiac stepdown unit and cardiology was consulted for further evaluation. His blood pressures have been stable since that time. Cardiology recommends discontinuing his lisinopril 10 mg daily until he is evaluated outpatient. Patient is stable for discharge home today. He is to follow-up with Dr. Collier outpatient. Discharge diagnosis 1. Attempted removal of lap band with conversion to sleeve gastrectomy, aborted secondary to persistent hypotension Nurse practitioner note has been reviewed by physician. Signing provider agrees with the documented findings, assessment, and plan of care. Plan - Discharge Summary Discharge Rx Participant: Yes New Discharge Prescriptions: No Action Simvastatin [Zocor] 20 mg PO HS Lisinopril [Prinivil] 10 mg PO HS Latanoprost/Pf [Latanoprost 0.005% Eye Drop] 1 drop BOTH EYES HS C,E,Zinc,Copper 11/Nttoo8y/Lut [Ocuvite Adult 50 Plus Softgel] 1 cap PO QAM Omeprazole 40 mg PO QAM Discharge Medication List Lisinopril [Prinivil] 10 mg PO HS 06/26/16 [History] Simvastatin [Zocor] 20 mg PO HS 06/26/16 [History] Latanoprost/Pf [Latanoprost 0.005% Eye Drop] 1 drop BOTH EYES HS 04/06/19 [History] C,E,Zinc,Copper 11/Csvee1h/Lut [Ocuvite Adult 50 Plus Softgel] 1 cap PO QAM 05/02/19 [History] Omeprazole 40 mg PO QAM 05/02/19 [History] Follow up Appointment(s)/Referral(s): Jorge Cunningham DO [Primary Care Provider] - 1 Week (Spoke to delivery rep. Office will call with appointment time) Flavio Collier MD [STAFF PHYSICIAN] - 1 Week ([phone] [facility])
[2019-05-20 12:21] VITALS: BP 127/78; PULSE 53
--- NOTE | 2019-05-20 22:45 | PN ---
PROGRESS NOTE DATE OF SERVICE: 05/20/2019. This is a 63-year-old who was admitted with perioperative hypotension is being closely monitored. No chest pain. No palpitations. No fever. EXAM: Alert and oriented x3. Pulse 67. Blood pressure 128/77. Respirations 20, temp 97.8, pulse ox 97% on room air. HEENT: Conjunctivae normal. NECK: No jugular venous distention. CARDIOVASCULAR: S1, S2 muffled. Respirations: Breath sounds diminished in the bases. No rhonchi. No crackles. ABDOMEN: Soft. Mild tenderness. Status post laparoscopic punctures. NERVOUS SYSTEM: No focal deficits. LAB: CBC within normal limits. Otherwise, CMP within normal limits. LDL is 100. A 2D echo done yesterday showed ejection fraction 50-55 percent. ASSESSMENT: 1. Perioperative hypotension, possibly medication anesthesia induced. 2. Morbid obesity, dysphagia for sleeve gastrectomy. 3. History of asthma. 4. Gastroesophageal reflux disease. 5. Hypertension. 6. Hyperlipidemia. 7. History of degenerative joint disease. 8. History of colonic polyps. 9. History of bariatric surgery. 10.FULL CODE. RECOMMENDATIONS AND DISCUSSION: I recommend to continue current medications, symptomatic treatment. Otherwise, at this time, I recommend follow up in the outpatient setting closely. The plan is to follow up with Cardiology and possibly admission for surgery. Monitor blood pressure closely. Lisinopril has been discontinued. MMODL / IJN: [id number] /
== END 2019-05-20 15:39 | disposition home or self-care (01) ==
LOC: 2ORMAIN 08:59 → INTOOBSV 08:59 → 3SCARD 12:57
PROVIDERS: ADMIT Surgery; ATTEND Surgery
DX: Z46.51 Encounter for fitting and adjustment of gastric lap band (principal); I95.9 Hypotension, unspecified; Z53.09 Procedure and treatment not carried out because of other contraindication; R13.10 Dysphagia, unspecified; E66.01 Morbid (severe) obesity due to excess calories; Z68.41 Body mass index [BMI] 40.0-44.9, adult; J45.909 Unspecified asthma, uncomplicated; K21.9 Gastro-esophageal reflux disease without esophagitis; I10 Essential (primary) hypertension; E78.5 Hyperlipidemia, unspecified; M19.90 Unspecified osteoarthritis, unspecified site; Z98.84 Bariatric surgery status; Z86.010 Personal history of colon polyps; Z87.11 Personal history of peptic ulcer disease; Z79.899 Other long term (current) drug therapy; Z88.5 Allergy status to narcotic agent; Z91.048 Other nonmedicinal substance allergy status; Z82.0 Family history of epilepsy and other diseases of the nervous system
CPT/HCPCS: 93306; 93005; 80061; 80053; 82533; 84484; 85025; 43772; G0379; G0378 ×3; J1100; J0690; J2405; J1650 ×2

== ENCOUNTER → 2019-06-06 | Outpatient (CLI) | payer MEDICARE ==
[2019-06-06 09:58] LABS: Basophils # (A) 0.1 k/uL (0-0.2); Basophils % (A) 1 %; Eosinophils # (A) 0.7 k/uL (0-0.7); Eosinophils % (A) 9 %; HCT 42.9 % (39.0-53.0); HGB 14.2 gm/dL (13.0-17.5); Lymphocytes # (A) 2.2 k/uL (1.0-4.8); Lymphocytes % (A) 30 %; MCV 81.9 fL (80.0-100.0); Mean Platelet Volume 7.7; Monocytes # (A) 0.4 k/uL (0-1.0); Monocytes % (A) 6 %; Neutrophils # (A) 3.9 k/uL (1.3-7.7); Neutrophils % (A) 53 %; Platelet Count 295 k/uL (150-450); RBC 5.24 m/uL (4.30-5.90); WBC 7.4 k/uL (3.8-10.6)
[2019-06-06 10:16] LABS: Albumin 4.2 g/dL (3.5-5.0); Calcium 9.5 mg/dL (8.4-10.2); Potassium 4.6 mmol/L (3.5-5.1); Total Bilirubin 0.7 mg/dL (0.2-1.3); Total Protein 7.3 g/dL (6.3-8.2)
== END | disposition home or self-care (01) ==
LOC: LABWHC1 08:36
PROVIDERS: ATTEND Surgery
DX: Z01.812 Encounter for preprocedural laboratory examination (principal)
CPT/HCPCS: 36415; 80053; 85025

== ENCOUNTER 2019-06-14 08:56 | Inpatient (IN) | payer MEDICARE ==
[2019-06-09 12:02] VITALS: BMI 39.0
[~2019-06-14 08:56] MED LIST changes: -DEXAMETHASONE SOD PHOSPHATE 10 MG/ML 1 ML VIAL IV ONE; -ENOXAPARIN 40 MG/0.4 ML SYRINGE SQ ONE; -HYDROmorphone 0.5 MG/0.5 ML SYRINGE IVP PRN; -LACTATED RINGERS 1,000 ML IV SCH; -LIDOCAINE 1% 20 ML VIAL (10MG/ML) FOR IV START INTRADERMA PRN; -MIDAZOLAM 2 MG/2 ML VIAL IV PRN; -ONDANSETRON 4 MG/2 ML VIAL IVP ONE; -SCOPOLAMINE 1.5MG/72HR PATCH TRANSDERM ONE
[2019-06-14] MEDS: LACTATED RINGERS 1,000 ML IV SCH ×4 (09:48→15:57)
[2019-06-14] MEDS ORDERED: ONDANSETRON 4 MG/2 ML VIAL IVP ONE ×2 (09:55→14:03)
[2019-06-14] MEDS ORDERED: DEXAMETHASONE SOD PHOSPHATE 10 MG/ML 1 ML VIAL IV ONE (09:55)
[2019-06-14] MEDS ORDERED: ROCURONIUM BROMIDE 10 MG/ML 10 ML VIAL IV ONE (10:29)
[2019-06-14] MEDS ORDERED: ePHEDrine SULFATE/0.9% NACL/PF 50 MG/5 ML SYRINGE IV ONE (10:29)
[2019-06-14] MEDS ORDERED: MIDAZOLAM 2 MG/2 ML VIAL ONE (10:29)
[2019-06-14] MEDS ORDERED: NEOSTIGMINE 1 MG/ML 10 ML VIAL ONE (10:29)
[2019-06-14] MEDS ORDERED: fentaNYL (PF) 50 MCG/ML 2 ML AMP ONE (10:29)
[2019-06-14] MEDS ORDERED: PROPOFOL 10 MG/ML 20 ML VIAL IV ONE (10:29)
[2019-06-14] MEDS ORDERED: GLYCOPYRROLATE 0.2 MG/ML 2 ML VIAL ONE (10:29)
[2019-06-14] MEDS ORDERED: LIDOCAINE 1% INJ 10MG/ML (20 ML MDV) ONE (10:29)
[2019-06-14] MEDS ORDERED: HEPARIN SODIUM,PORCINE 5,000 UNIT/ML 1 ML VIAL SQ ONE (10:30)
--- NOTE | 2019-06-14 10:35 | P.GSHP ---
History of Present Illness H&P Date: 06/14/19 Chief Complaint: Dysphagia This is a 63-year-old male who presents today for laparoscopic removal of LAP- BAND and conversion to sleeve gastrectomy. Patient has had long-standing issues with chronic dysphagia related to his LAP-BAND. Patient understands risks of surgery including conversion to the open procedure and injury to the stomach liver or spleen. Past Medical History Past Medical History: Asthma, GERD/Reflux, Hyperlipidemia, Hypertension, Osteoarthritis (OA) Additional Past Medical History / Comment(s): Hx colon polyps, right sciatic pain @ times, hx small ulcer. History of Any Multi-Drug Resistant Organisms: None Reported Past Surgical History: Appendectomy, Bariatric Surgery, Joint Replacement, Tonsillectomy Additional Past Surgical History / Comment(s): Bilateral shoulder replacements, left knee replacement, skin reduction surgeries, lap band surgery, EGD. Past Anesthesia/Blood Transfusion Reactions: Previous Problems w/ Anesthesia Additional Past Anesthesia/Blood Transfusion Reaction / Comment(s): Patient was scheduled for same surgery 05/19/19, surgery aborted due to hypotension. See Reports.Throat closed up after one of his surgeries many years ago. Has had 8 surgeries since with no problems. Past Psychological History: No Psychological Hx Reported Smoking Status: Never smoker Past Alcohol Use History: Occasional Past Drug Use History: None Reported - Past Family History Father Family Medical History: Seizure Disorder Additional Family Medical History / Comment(s): Experienced rectal bleeding and during a seizure episode. Mother Family Medical History: No Reported History Medications and Allergies Home Medications Medication Instructions Recorded Confirmed Type Simvastatin [Zocor] 20 mg PO HS 06/26/16 06/14/19 History Latanoprost/Pf [Latanoprost 0.005% 1 drop BOTH EYES HS 04/06/19 06/14/19 History Eye Drop] Lisinopril [Zestril] 2.5 mg PO HS 06/09/19 06/14/19 History Allergies Allergy/AdvReac Type Severity Reaction Status Date / Time adhesive tape Allergy Rash/Hives Verified 06/14/19 09:29 meperidine HCl [From Demerol] Allergy Rash/Hives Verified 06/14/19 09:29 Surgical - Exam Vital Signs Temp Pulse Resp BP Pulse Ox 98.3 F 63 20 150/90 95 06/14/19 09:32 06/14/19 09:32 06/14/19 09:32 06/14/19 09:32 06/14/19 09:32 - General well developed, well nourished, no distress - Eyes PERRL - ENT normal pinna - Neck no masses - Respiratory normal expansion - Cardiovascular Rhythm: regular - Abdomen Abdomen: soft, non tender Assessment and Plan Assessment: Morbid obesity, BMI 39 Dysphagia We'll perform removal of LAP-BAND and conversion to sleeve gastrectomy.
[2019-06-14] MEDS ORDERED: LACTATED RINGERS 1,000 ML IV ONE (10:40)
[2019-06-14] MEDS ORDERED: BUPIVACAIN-EPI 0.25%-1:200,000 30 ML VIAL SQ ONE (11:09)
[2019-06-14] MEDS ORDERED: HYDROcodone/APAP 15 ML SOLUTION PO PRN (12:54)
[2019-06-14] MEDS ORDERED: SIMETHICONE 40 MG/0.6 ML DROPS 2,000 MG/30 ML BOTTLE PO PRN (12:54)
[2019-06-14] MEDS ORDERED: diphenhydrAMINE 50 MG/ML 1 ML VIAL IVP PRN (12:54)
[2019-06-14] MEDS ORDERED: ONDANSETRON 4 MG/2 ML VIAL IVP PRN (12:54)
[2019-06-14] MEDS ORDERED: HYOSCYAMINE ORAL DROPS 1.875 MG/15 ML BOTTLE PO PRN (12:54)
[2019-06-14] MEDS ORDERED: NALOXONE 0.4 MG/ML 1 ML VIAL IV PRN (12:54)
[2019-06-14] MEDS: HYDROmorphone 0.5 MG/0.5 ML SYRINGE IVP PRN ×4 (13:18→14:12)
[2019-06-14] MEDS: 0.9% NACL WITH KCL 20 MEQ/L 1,000 ML IV SCH (15:57)
[2019-06-14] MEDS: ALBUTEROL NEBULIZED 2.5 MG/3 ML INHALATION SCH ×2 (16:09→19:47)
[2019-06-14] MEDS: HYDROmorphone 1 MG/ML 1 ML SYRINGE IVP PRN (21:41)
[2019-06-14] MEDS: ENOXAPARIN 40 MG/0.4 ML SYRINGE SQ SCH (21:42)
[2019-06-14] MEDS: ceFAZolin 3 GM in SODIUM CHLORIDE 0.9% 100 ML IVPB SCH (21:42)
--- NOTE | 2019-06-14 23:00 | CONS ---
CONSULTATION DATE OF SERVICE: 06/14/2019 REASON FOR CONSULTATION: Regarding hypertension, hyperlipidemia and multiple other medical issues requested by Dr. Collier. HISTORY OF PRESENT ILLNESS: This 63-year-old gentleman with a past medical history of asthma, GERD, hypertension, hyperlipidemia, history of DJD, history of bariatric surgery being followed by primary physician in the [place] area underwent laparoscopic removal of the lap band and all components with lysis of adhesions by Dr. Collier. The patient is complaining of severe abdominal pain. Otherwise, there is no history of fever, rigors or chills. No history of headache, loss of consciousness or seizures. Please note that the patient had a perioperative hypotension, but currently the blood pressure is well maintained at 155/83. There is no history of fever, rigors or chills. No history of headache, loss of consciousness or seizures at this time. PAST MEDICAL HISTORY: History of asthma, GERD, hypertension, hyperlipidemia, history of DJD, history of bariatric surgery and appendectomy. MEDICATIONS: Prior to admission home medications are: 1. Zocor 20 mg q.h.s. 2. Zestril 2.5 mg q.h.s. 3. Latanoprost 0.05% eyedrops 1 drop both eyes q.h.s. ALLERGIES: ADHESIVE TAPES and DEMEROL. FAMILY HISTORY: History of seizure disorder. SOCIAL HISTORY: No history of smoking. Occasional alcohol intake. REVIEW OF SYSTEMS: ENT: No diminished vision. No diminished hearing. CARDIOVASCULAR: S1, S2. No angina or palpitations. RESPIRATION: Occasional cough. GI as mentioned earlier. no dysuria. NERVOUS SYSTEM: No numbness or weakness. ALLERGY/IMMUNOLOGY: No asthma or hayfever. HEMATOLOGY/ONCOLOGY: No history of anemia. ENDOCRINE: No history of diabetes or hypothyroidism. CONSTITUTIONAL: As mentioned earlier. DERMATOLOGY: Negative. RHEUMATOLOGY: Negative. PSYCHIATRY: As mentioned earlier. PHYSICAL EXAMINATION: Patient alert and oriented x3. The pulse is 66. Blood pressure 155/83, respirations 16, temperature normal, pulse ox 98% on 3 L. HEENT is conjunctivae normal. Oral mucosa moist. Neck is no jugular venous distention. No carotid bruit. No lymph node enlargement. Cardiovascular system: S1, S2. No S3, no S4. RESPIRATORY: Breath sounds diminished in the bases. No rhonchi. No crackles. ABDOMEN: Soft, status post surgery. LEGS: No edema. No swelling. NERVOUS SYSTEM: Higher functions as mentioned earlier. Moves all four limbs. No focal deficits. LYMPHATICS: No lymph nodes palpable in the neck, axillae or groin. SKIN no ulcer, rash or bleeding. JOINTS: No active deforming arthropathy. LABS: CBC, BMP within normal limits. ASSESSMENT: 1. Status post laparoscopic removal of the lap band and all components and laparoscopic sleeve gastrectomy. 2. History of perioperative hypotension. 3. History of asthma. 4. Gastroesophageal reflux disease. 5. Hyperlipidemia. 6. History of hypertension. 7. History of degenerative joint disease. 8. History of bariatric surgery. 9. FULL CODE. RECOMMENDATIONS AND DISCUSSION: In this 63-year-old gentleman who presented with multiple medical issues, at this time I recommend to continue current medications, management and symptomatic treatment. We will monitor the blood pressure closely. DVT prophylaxis. Resume the home medications and DVT prophylaxis. Incentive spirometry. I would also recommend p.r.n. medications also. Otherwise, proton pump inhibitors, eyedrops. Continue to monitor. Further recommendations to follow. MMODL / IJN: [id number] /
[2019-06-14] MEDS: LATANOPROST 0.005% OPHTH DROPS 2.5 ML BTL BOTH EYES SCH (23:41)
[2019-06-15] MEDS: 0.9% NACL WITH KCL 20 MEQ/L 1,000 ML IV SCH ×2 (00:27→02:05)
[2019-06-15] MEDS: HYDROmorphone 1 MG/ML 1 ML SYRINGE IVP PRN ×3 (02:05→21:51)
[2019-06-15] MEDS: ceFAZolin 3 GM in SODIUM CHLORIDE 0.9% 100 ML IVPB SCH (02:15)
[2019-06-15] MEDS: ALBUTEROL NEBULIZED 2.5 MG/3 ML INHALATION SCH ×4 (07:41→21:33)
[2019-06-15 07:48] LABS: Basophils % (A) 0 %; Eosinophils # (A) 0.1 k/uL (0-0.7); Eosinophils % (A) 1 %; HCT 41.3 % (39.0-53.0); HGB 13.5 gm/dL (13.0-17.5); Lymphocytes # (A) 1.5 k/uL (1.0-4.8); Lymphocytes % (A) 13 %; MCH 26.6 pg (25.0-35.0); MCHC 32.7 g/dL (31.0-37.0); MCV 81.2 fL (80.0-100.0); Mean Platelet Volume 7.3; Monocytes # (A) 0.9 k/uL (0-1.0); Monocytes % (A) 8 %; Neutrophils # (A) 9.2 k/uL (1.3-7.7); Neutrophils % (A) 78 %; Platelet Count 279 k/uL (150-450); RBC 5.08 m/uL (4.30-5.90); RDW 14.2 % (11.5-15.5); WBC 11.8 k/uL (3.8-10.6)
[2019-06-15 08:09] LABS: African American GFR (CKD) >90 (>60 ml/min/1.73 sqM); Anion Gap 10 mmol/L; Blood Urea Nitrogen 15 mg/dL (9-20); Carbon Dioxide 25 mmol/L (22-30); Chloride 105 mmol/L (98-107); Glucose 101 mg/dL (74-99); Magnesium 2.2 mg/dL (1.6-2.3); Phosphorus 4.1 mg/dL (2.5-4.5); Potassium 4.9 mmol/L (3.5-5.1); Sodium 140 mmol/L (137-145)
--- NOTE | 2019-06-15 09:05 | FL ---
EXAMINATION TYPE: FL UGI DATE OF EXAM: 06/15/2019 CLINICAL HISTORY: Gastric sleeve and lap and removal TECHNIQUE: Postoperative limited esophagram is performed utilizing 25 mL of Isovue-370. A total of 2. 24 minutes of fluoroscopic time was utilized during procedure. 34 fluoroscopic images saved. COMPARISON: None. FINDINGS: The patient swallowed contrast without difficulty or delay. Esophageal peristalsis and mo tility are within normal limits. There is moderate to severe delay flow of contrast along the diaphr agmatic hiatus into proximal stomach and subsequent flow into gastric sleeve. There is moderate to se mi delay flow from distal sleeve into pylorus and duodenal sweep. Gastroesophageal reflux is seen a s a result. Patient remains asymptomatic. There is no evidence of contrast extravasation to suggest l eak. IMPRESSION: No evidence of leak status post recent gastric sleeve surgery. Moderate to severe delay a t the gastroesophageal junction, through the gastric sleeve, and into the small bowel, likely from po stoperative edema and resulting in gastroesophageal reflux.
[2019-06-15] MEDS: LACTATED RINGERS 1,000 ML IV SCH (10:36)
[2019-06-15] MEDS: PANTOPRAZOLE 40 MG/10 ML VIAL IV SCH (10:37)
[2019-06-15] MEDS: ENOXAPARIN 40 MG/0.4 ML SYRINGE SQ SCH ×2 (10:37→21:50)
[2019-06-15] MEDS ORDERED: BISACODYL 10 MG SUPP RECTAL PRN (11:12)
[2019-06-15] MEDS: DEXAMETHASONE SOD PHOSPHATE 4 MG/ML 1 ML VIAL IV SCH ×2 (12:57→17:59)
--- NOTE | 2019-06-15 14:02 | P.PN ---
Subjective Progress Note Date: 06/15/19 CHIEF COMPLAINT: Dysphagia. Morbid obesity HISTORY OF PRESENT ILLNESS: Patient is status post removal of lap band and conversion to sleeve gastrectomy. POD #1. Patient reports abdominal pain but reports it is tolerable with the administration of IV Dilaudid. He is tolerating ice chips. He denies dysphagia. He reports mild nausea. No vomiting. Esophagram completed postoperatively reveals moderate to severe obstruction but no leak. Patient reports receiving overnight and developed a rash which resolved after administration of Benadryl. He also reports not feeling as though he is emptying his bladder completely after urinating, although it is improved since yesterday. PHYSICAL EXAM: VITAL SIGNS: Reviewed. GENERAL: Well-developed in no acute distress. HEENT: No sclera icterus. Extraocular movements grossly intact. Moist buccal mucosa. Head is atraumatic, normocephalic. ABDOMEN: Soft. Nondistended. Nontender. Surgical sites clean dry and intact without drainage. NEUROLOGIC: Alert and oriented. Cranial nerves II through XII grossly intact. ASSESSMENT: 1. S/P removal of lap band and conversion to sleeve gastrectomy 2. Postoperative obstruction of sleeve gastrectomy secondary to edema, an expected result secondary to surgery PLAN: 1. Begin bariatric clear liquid diet. If patient experiences increased nausea or dysphagia, downgrade to ice chips 2. Begin Decadron 3. Pain control. Continue IV Dilaudid. [place] PRN 4. Activity as tolerated 5. Incentive spirometer 10 times hour while awake 6. Check post void residual Nurse practitioner note has been reviewed by physician. Signing provider agrees with the documented findings, assessment, and plan of care. Objective - Vital Signs Vital signs: Vital Signs Temp 98.2 F 06/15/19 07:00 Pulse 83 06/15/19 07:00 Resp 16 06/15/19 07:00 BP 152/88 06/15/19 07:00 Pulse Ox 93 L 06/15/19 07:00 Intake & Output 06/14/19 06/15/19 06/15/19 18:59 06:59 18:59 Intake Total 1999 Output Total 20 500 Balance 1979 - Weight 127.006 kg Intake: IV 1999 Output: Urine 500 Estimated Blood Loss 20 Other: Voiding Method Toilet # Voids 1 - Labs CBC & Chem 7: 06/15/19 06:51 06/15/19 06:51 Labs: Abnormal Lab Results - Last 24 Hours (Table) 06/15/19 06/15/19 Range/Units 06:51 06:51 WBC 11.8 H (3.8-10.6) k/uL Neutrophils # 9.2 H (1.3-7.7) k/uL Glucose 101 H (74-99) mg/dL
[2019-06-15 20:13] VITALS: RESP 16
--- NOTE | 2019-06-15 20:25 | PN ---
PROGRESS NOTE DATE OF SERVICE: 06/15/2019. This 63-year-old gentleman who was admitted after laparoscopic removal of his lap band and laparoscopic sleeve gastrectomy is improving significantly. No chest pain. No palpitations. No fever. Blood pressure is well maintained at this time. PHYSICAL EXAMINATION: Alert and oriented x3. Pulse is 80, blood pressure 160/90, respiration 17, temperature 98.4, pulse ox 97% on room air. HEENT: Conjunctivae normal. NECK: No jugular venous distention. CARDIOVASCULAR SYSTEM: S1, S2 muffled. RESPIRATORY SYSTEM: Breath sounds diminished at the bases. No rhonchi. No crackles. ABDOMEN: Soft. Status post surgery. LEGS: No edema. No swelling. NERVOUS SYSTEM: No focal deficit. LABS: WBC 11.8, hemoglobin 13.5. ASSESSMENT: 1. Status post laparoscopic removal of lap band and all components and laparoscopic sleeve gastrectomy. 2. History of perioperative hypotension. 3. History of asthma. 4. Gastroesophageal reflux disease. 5. Hyperlipidemia. 6. History of hypertension. 7. History of degenerative joint disease. 8. History of bariatric surgery. 9. FULL CODE. RECOMMENDATIONS AND DISCUSSION: I recommend to continue current medications, continue with the monitoring, symptomatic treatment. I recommend continuing with incentive spirometry. Monitor blood pressure closely. Further recommendations to follow. MMODL / IJN: [id number] /
[2019-06-15] MEDS ORDERED: LISINOPRIL 2.5 MG TAB PO SCH (21:00)
[2019-06-15] MEDS: LATANOPROST 0.005% OPHTH DROPS 2.5 ML BTL BOTH EYES SCH (21:50)
[2019-06-16] MEDS: DEXAMETHASONE SOD PHOSPHATE 4 MG/ML 1 ML VIAL IV SCH ×3 (02:19→12:46)
[2019-06-16 07:30] VITALS: BP 148/82; PULSE 74; TEMP 98
[2019-06-16] MEDS: ALBUTEROL NEBULIZED 2.5 MG/3 ML INHALATION SCH ×3 (07:35→15:05)
[2019-06-16] MEDS: LACTATED RINGERS 1,000 ML IV SCH (09:38)
[2019-06-16] MEDS: PANTOPRAZOLE 40 MG/10 ML VIAL IV SCH ×2 (09:39→09:44)
[2019-06-16] MEDS: ENOXAPARIN 40 MG/0.4 ML SYRINGE SQ SCH (09:39)
[2019-06-16] MEDS ORDERED: PANTOPRAZOLE 40 MG TABLET PO SCH (09:45)
--- NOTE | 2019-06-16 14:42 | P.DS ---
Providers Date of admission: 06/14/19 08:56 Expected date of discharge: 06/16/19 Attending physician: Flavio Collier Consults: 06/14/19 12:54 Consult Physician Routine Consulting Provider: Marion Salazar Consult Reason/Comments: Medical management Do you want consulting provider notified?: Yes Primary care physician: Stated None Hospital Course: 63-year-old male who underwent removal of lap band and conversion to sleeve gastrectomy. Esophagram completed postoperatively reveals moderate to severe obstruction but no leak. Patient was started on IV Decadron. He has been tolerating clear liquid diet without difficulty. Denies nausea or vomiting. Denies dysphasia. Pain has been controlled on oral medications. Vital signs have been stable. He is stable for discharge home today per Dr. Collier. Please see EMR for further hospital course details. Discharge diagnosis: 1. S/P removal of lap band and conversion to sleeve gastrectomy 2. Postoperative obstruction of sleeve gastrectomy secondary to edema, an expected result secondary to surgery, resolved Nurse practitioner note has been reviewed by physician. Signing provider agrees with the documented findings, assessment, and plan of care. Plan - Discharge Summary Discharge Rx Participant: Yes New Discharge Prescriptions: New Sucralfate [Carafate] 1 gm PO BID #500 ml Bisacodyl [Dulcolax] 5 mg PO DAILY PRN #10 tablet. PRN Reason: Constipation Simethicone 40 mg/0.6 ml Drops [Mylicon Drops] 40 mg PO PCHS PRN #30 ml PRN Reason: gas Hydrocodone/Acetaminophen [[place] 5-325] 1 tab PO Q4HR PRN 3 Days #18 tab PRN Reason: Pain Omeprazole 40 mg PO DAILY #30 cap Ondansetron Odt [Zofran Odt] 4 mg PO Q8HR PRN #9 tab PRN Reason: Nausea Continue Simvastatin [Zocor] 20 mg PO HS Latanoprost/Pf [Latanoprost 0.005% Eye Drop] 1 drop BOTH EYES HS Lisinopril [Zestril] 2.5 mg PO HS Discharge Medication List Simvastatin [Zocor] 20 mg PO HS 06/26/16 [History] Latanoprost/Pf [Latanoprost 0.005% Eye Drop] 1 drop BOTH EYES HS 04/06/19 [History] Lisinopril [Zestril] 2.5 mg PO HS 06/09/19 [History] Bisacodyl [Dulcolax] 5 mg PO DAILY PRN #10 tablet. 06/16/19 [Rx] Hydrocodone/Acetaminophen [[place] 5-325] 1 tab PO Q4HR PRN 3 Days #18 tab 06/16/19 [Rx] Omeprazole 40 mg PO DAILY #30 cap 06/16/19 [Rx] Ondansetron Odt [Zofran Odt] 4 mg PO Q8HR PRN #9 tab 06/16/19 [Rx] Simethicone 40 mg/0.6 ml Drops [Mylicon Drops] 40 mg PO PCHS PRN #30 ml 06/16/19 [Rx] Sucralfate [Carafate] 1 gm PO BID #500 ml 06/16/19 [Rx] Follow up Appointment(s)/Referral(s): [facility],. [NON-STAFF] - 1 Week Patient Instructions/Handouts: Nutrition after Bariatric Surgery (DC), Laparoscopic Sleeve Gastrectomy (DC) Activity/Diet/Wound Care/Special Instructions: No driving while taking [place] No lifting over 10 pounds You may shower. No soaking or tub baths Very light activity until you are reevaluated at your follow up appointment with your surgeon Diet per bariatric dietitian schedule
--- NOTE | 2019-06-16 20:42 | PN ---
PROGRESS NOTE DATE OF SERVICE: 06/16/2019 This 63-year-old gentleman was admitted after laparoscopic removal of lap band and components and laparoscopic sleeve gastrectomy. He is improving significantly. No chest pain. No palpitations. No fever. PHYSICAL EXAMINATION: Alert and oriented x3. Pulse 74, blood pressure 148/82, respirations 16, temperature 98 degrees, pulse ox 94% on room air. HEENT: Conjunctivae normal. NECK: No jugular venous distention. CARDIOVASCULAR SYSTEM: S1, S2 muffled. RESPIRATORY SYSTEM: Breath sounds diminished at the bases. No rhonchi. No crackles. ABDOMEN: Soft. Status post surgery. NERVOUS SYSTEM: No focal deficit. LABS: WBC 11.8. ASSESSMENT: 1. Status post laparoscopic removal of lap band and all components and laparoscopic sleeve gastrectomy. 2. History of perioperative hypotension previously. 3. History of asthma. 4. Gastroesophageal reflux disease. 5. Hyperlipidemia. 6. Hypertension history. 7. History of degenerative joint disease. 8. History of bariatric surgery. 9. FULL CODE. RECOMMENDATIONS AND DISCUSSION: I recommend to continue current medications, continue with the monitoring, symptomatic treatment. Monitor blood pressure in the outpatient setting closely. Otherwise, rest of the recommendations per Surgery. Further recommendations to follow. MMODL / IJN: [id number] /
--- NOTE | 2019-06-24 12:52 | P.OP ---
Date of Procedure: 06/14/19 Preoperative Diagnosis: Morbid obesity Dysphagia Postoperative Diagnosis: Morbid Obesity, BMI 30 Dysphagia Procedure(s) Performed: Laparoscopic removal of LAP-BAND system Laparoscopic sleeve gastrectomy Laparoscopic lysis of extensive adhesions Anesthesia: HSANNAN Surgeon: Flavio Collier Estimated Blood Loss (ml): 10 Pathology: other (Gastric remnant) Condition: stable Disposition: PACU Description of Procedure: The patient was placed on the operating room table in the supine position. She received general anesthesia and then was placed in dorsal lithotomy position. Her abdomen was prepped and draped in sterile fashion. The skin incision sites were anesthetized 1% local Xylocaine. And then the skin was incised with an 11 blade in the left lateral position. Using a blade less trocar under direct visualization the peritoneal cavity was entered. The abdomen was insufflated and then a 5 mm laparoscope was placed into the peritoneal cavity. A 5 mm trocar was placed in the right epigastric, and right lateral position. A 15 mm trocar was placed in the supra-umbilical position and another 5 mm trocar was placed in the left lateral position. The left lateral lobe of the liver was retracted. There were extensive adhesions noted along the stomach and and liver. Approximately 35 minutes operative time used to lyse adhesions between the stomach and liver and small bowel and the LAP-BAND device. The stomach was visualized. The anterior gastric fundoplication was then taken down with sharp dissection. The LAP-BAND device to expose. And then the LAP- BAND was cut and withdrawn from around stomach. The device is brought up through the 15 mm trocar port. The greater curvature of the stomach was then dissected using the Harmonic scissors. The dissection occurred approximately 5 cm from the pylorus to the level of the left benoit. There was no hiatal hernia seen. At this point a 40- Norwegian bougie dilator was placed the oropharynx and passed into the esophagus and into the stomach by the [employer]. The sleeve gastrectomy was performed by using the powered echelon stapler with a seam guard buttress material. Sequential firings of the stapler were performed. The gastric remnant was then brought out through the 15 mm trocar site. The dilator was withdrawn. And a orogastric tube was replaced into the stomach. The stomach was insufflated with 200 mL of methylene blue normal saline. There was no evidence of extravasation. The abdomen was irrigated there is no bleeding seen. The Baron-Bea device was used to close the 15 mm trocar with 0 Vicryl. Skin was closed with interrupted 3-0 Monocryl sutures once the trochars withdrawn. Dermabond dressing was applied. Patient was sent to recovery in stable condition.
== END 2019-06-16 15:17 | disposition home or self-care (01) | DRG 328 ==
LOC: 2ORMAIN 08:56 → 4SSUR 15:22
PROVIDERS: ADMIT Surgery; ATTEND Surgery
PROC: 0DN64ZZ Release Stomach, Percutaneous Endoscopic Approach (ICD-10-PCS; 2019-06-14)
PROC: 0FN04ZZ Release Liver, Percutaneous Endoscopic Approach (ICD-10-PCS; 2019-06-14)
PROC: 0DB64Z3 Excision of Stomach, Percutaneous Endoscopic Approach, Vertical (ICD-10-PCS; principal; 2019-06-14 10:30)
PROC: 0DP64CZ Removal of Extraluminal Device from Stomach, Percutaneous Endoscopic Approach (ICD-10-PCS; 2019-06-14 10:30)
DX: K95.09 Other complications of gastric band procedure (principal); E66.01 Morbid (severe) obesity due to excess calories; Z68.39 Body mass index [BMI] 39.0-39.9, adult; R13.10 Dysphagia, unspecified; K66.0 Peritoneal adhesions (postprocedural) (postinfection); J45.909 Unspecified asthma, uncomplicated; K21.9 Gastro-esophageal reflux disease without esophagitis; I10 Essential (primary) hypertension; M19.90 Unspecified osteoarthritis, unspecified site; I95.9 Hypotension, unspecified; E78.5 Hyperlipidemia, unspecified; M54.31 Sciatica, right side; R60.9 Edema, unspecified; R21 Rash and other nonspecific skin eruption; Z79.899 Other long term (current) drug therapy; Z96.612 Presence of left artificial shoulder joint; Z96.611 Presence of right artificial shoulder joint; Z96.652 Presence of left artificial knee joint; Z71.3 Dietary counseling and surveillance; Z86.010 Personal history of colon polyps; Y83.2 Surgical operation with anastomosis, bypass or graft as the cause of abnormal reaction of the patient, or of later complication, without mention of misadventure at the time of the procedure; Z88.5 Allergy status to narcotic agent; Z91.048 Other nonmedicinal substance allergy status; Z82.0 Family history of epilepsy and other diseases of the nervous system
CPT/HCPCS: 74240; 80048; 83735; 84100; 85025; 88307; 94760; 94762

== ENCOUNTER → 2019-06-20 | Outpatient (CLI) | payer MEDICARE ==
[2019-06-20 11:03] VITALS: BP 123/85; PULSE 69; TEMP 98.2; BMI 38.0
== END | disposition home or self-care (01) ==
LOC: BARWHC3 09:59
PROVIDERS: ATTEND Surgery
DX: Z09 Encounter for follow-up examination after completed treatment for conditions other than malignant neoplasm (principal); Z98.84 Bariatric surgery status; N18.2 Chronic kidney disease, stage 2 (mild)
CPT/HCPCS: 99211

== ENCOUNTER → 2019-06-27 | Outpatient (CLI) | payer MEDICARE ==
[2019-06-27 14:04] VITALS: BP 131/88; PULSE 59; TEMP 98.8; BMI 37.6
--- NOTE | 2019-06-27 14:53 | P.HPBAR ---
Bariatric H&P - History & Physicial H&P Date: 06/27/19 History & Physicial: Visit/CC: 2 week sleeve f/u (sx 06/14/19) Patient initial contact: Initial weight: 124.851 kg Initial weight in pounds: 275.25 Height: 5 ft 11 in Initial BMI: 38.4 Last weight: Current weight: 122.334 kg Current weight in pounds: 269.70 Current BMI: 37.6 [place] body weight (based on NIH guidelines): 78.018 kg Excess body weight loss: 5.3% The patient is a 63 year-old M who presents for Bariatric Assessment. Presents for initial postoperative visit for sleeve gastrectomy. He is doing quite well. He's had no complaints. Past Medical History Past Medical History: Asthma, GERD/Reflux, Hyperlipidemia, Hypertension, Osteoarthritis (OA) Additional Past Medical History / Comment(s): Hx colon polyps, right sciatic pain @ times, hx small ulcer. History of Any Multi-Drug Resistant Organisms: None Reported Past Surgical History: Appendectomy, Bariatric Surgery, Joint Replacement, Tonsillectomy Additional Past Surgical History / Comment(s): Bilateral shoulder replacements, left knee replacement, skin reduction surgeries, lap band surgery, EGD.lap band removal with revision to sleeve gastrectomy 06-14-19 Past Anesthesia/Blood Transfusion Reactions: Previous Problems w/ Anesthesia Additional Past Anesthesia/Blood Transfusion Reaction / Comm: Patient was scheduled for same surgery 05/19/19, surgery aborted due to hypotension. See Reports.Throat closed up after one of his surgeries many years ago. Has had 8 surgeries since with no problems. Smoking Status: Never smoker - Past Family History Father Family Medical History: Seizure Disorder Additional Family Medical History / Comment(s): Experienced rectal bleeding and during a seizure episode. Mother Family Medical History: No Reported History Surgical - Exam Vital Signs Temp Pulse BP 98.8 F 59 L 131/88 06/27/19 13:59 06/27/19 13:59 06/27/19 13:59 - General well developed, well nourished, no distress - Eyes PERRL - Neck no masses - Abdomen Some evidence of irritation from the skin glue Abdomen: soft, non tender Bariatric Checklist Checklist: Plan: Checklist: EGD: 1. Hiatal hernia: 2. H. Pylori: HgbA1c: Vitamin D: Smoking: Never smoker Primary care physician referral: Dr. J Luis Cunningham ([place]) Psychiatry clearance: Cardiology clearance: Sleep study: Diet journal: VTE risk score: VTE risk level: Rehab needs at discharge:
== END ==
LOC: BARWHC3 13:43
PROVIDERS: ATTEND Surgery
DX: Z48.815 Encounter for surgical aftercare following surgery on the digestive system (principal); E66.01 Morbid (severe) obesity due to excess calories; Z68.37 Body mass index [BMI] 37.0-37.9, adult; Z98.84 Bariatric surgery status; Z90.89 Acquired absence of other organs
CPT/HCPCS: 97803; G0463; 99211

== ENCOUNTER → 2019-07-11 | Outpatient (CLI) | payer MEDICARE ==
[2019-07-11 14:09] VITALS: RESP 16; BMI 37.0
--- NOTE | 2019-07-11 14:27 | P.HPBAR ---
Bariatric H&P - History & Physicial H&P Date: 07/11/19 History & Physicial: Visit/CC: F/U Patient initial contact: Initial weight: 124.851 kg Initial weight in pounds: 275.25 Height: 5 ft 11 in Initial BMI: 38.4 Last weight: Current weight: 120.656 kg Current weight in pounds: 266.00 Current BMI: 37.0 [place] body weight (based on NIH guidelines): 78.018 kg Excess body weight loss: 8.9% The patient is a 63 year-old M who presents for Bariatric Assessment. Patient presents today for sleeve gastrectomy follow-up. He feels well overall. He has had some minimal GERD. Past Medical History Past Medical History: Asthma, GERD/Reflux, Hyperlipidemia, Hypertension, Osteoarthritis (OA) Additional Past Medical History / Comment(s): Hx colon polyps, right sciatic pain @ times, hx small ulcer. History of Any Multi-Drug Resistant Organisms: None Reported Past Surgical History: Appendectomy, Bariatric Surgery, Joint Replacement, Tonsillectomy Additional Past Surgical History / Comment(s): Bilateral shoulder replacements, left knee replacement, skin reduction surgeries, lap band surgery, EGD.lap band removal with revision to sleeve gastrectomy 06-14-19 Past Anesthesia/Blood Transfusion Reactions: Previous Problems w/ Anesthesia Additional Past Anesthesia/Blood Transfusion Reaction / Comm: Patient was scheduled for same surgery 05/19/19, surgery aborted due to hypotension. See Reports.Throat closed up after one of his surgeries many years ago. Has had 8 surgeries since with no problems. Past Psychological History: No Psychological Hx Reported Smoking Status: Never smoker Past Alcohol Use History: Occasional Past Drug Use History: None Reported - Past Family History Father Family Medical History: Seizure Disorder Additional Family Medical History / Comment(s): Experienced rectal bleeding and during a seizure episode. Mother Family Medical History: No Reported History Surgical - Exam Vital Signs Resp 16 07/11/19 13:45 - General well developed, well nourished, no distress - Eyes PERRL - Abdomen Abdomen: soft, non tender Bariatric Assessment & Plan Plan: Status post sleeve gastrectomy. Patient is doing quite well. His GERD is minimal observed. His hypertension appears to have resolved. He has been taken off of his blood pressure medications by his receiving worker. Bariatric Checklist Checklist: Plan: Checklist: EGD: 1. Hiatal hernia: 2. H. Pylori: HgbA1c: Vitamin D: Smoking: Never smoker Primary care physician referral: Dr. J Luis Cunningham ([place]) Psychiatry clearance: Cardiology clearance: Sleep study: Diet journal: VTE risk score: VTE risk level: Rehab needs at discharge:
[2019-07-11 15:01] LABS: HCT 41.6 % (39.0-53.0); HGB 13.3 gm/dL (13.0-17.5); MCH 25.7 pg (25.0-35.0); MCV 80.3 fL (80.0-100.0); Mean Platelet Volume 6.4; Platelet Count 277 k/uL (150-450); RBC 5.18 m/uL (4.30-5.90); WBC 8.5 k/uL (3.8-10.6)
[2019-07-11 19:27] LABS: Vitamin D 25 Hydroxy 29.6 ng/mL (30.0-100.0)
[2019-07-11 21:48] LABS: African American GFR (CKD) 92.4 (60.0-200.0); Albumin 4.4 g/dL (3.80-4.90); Albumin/Globulin Ratio 2.2 (1.60-3.17); Anion Gap 7.8 mmol/L (4.00-12.00); Calcium 9.5 mg/dL (8.7-10.3); Carbon Dioxide 29.2 mmol/L (21.6-31.8); Potassium 4.4 mmol/L (3.5-5.5); Total Bilirubin 0.3 mg/dL (0.3-1.2); Total Protein 6.4 g/dL (6.2-8.2)
== END | disposition home or self-care (01) ==
LOC: BARWHC3 13:33
PROVIDERS: ATTEND Surgery
DX: Z48.815 Encounter for surgical aftercare following surgery on the digestive system (principal); K21.9 Gastro-esophageal reflux disease without esophagitis; E66.01 Morbid (severe) obesity due to excess calories; Z90.49 Acquired absence of other specified parts of digestive tract; Z98.84 Bariatric surgery status
CPT/HCPCS: 84425; 80053; 82607; 85027; 82306; 36415; G0463; 99211